=== PATIENT | male | born 1970 | race Caucasian/White ===

== ENCOUNTER 2021-04-08 11:45 | Emergency (ER) | payer MEDICAID, OTHER, SELFPAY ==
[2021-04-08 11:48] VITALS: BP 134/65; PULSE 61; RESP 18; TEMP 37; O2SAT 97; BMI 21.2
[2021-04-08] MEDS: Erythromycin Base 0.5% Oph Oin 1 GM TUBE 1 CM EYE-BOTH (12:54)
[2021-04-08] MEDS: Fluorescein Sodium STRIP 1 STRIP EYE-BOTH (12:54)
[2021-04-08] MEDS: Tetracaine HCl/PF 0.5% Oph Sol 4 ML DROPS 2 DROP EYE-BOTH (12:54)
--- NOTE | 2021-04-08 13:19 | ED.EYEPROB ---
HPI - Eye Problem General Chief complaint: Eye Problems Stated complaint: fb in l eye Time Seen by Provider: 04/08/21 12:16 Source: patient Mode of arrival: ambulatory Limitations: language barrier (Serbian-speaking) History of Present Illness HPI Narrative: 50-year-old male presenting to the ED with complaints of possible foreign body to the left eye that occurred on Tuesday while he was cutting wood. He reports that he feels like something is stuck in his eye. He reports some blurriness and redness. He denies any fevers, chills, dizziness, headaches, drainage from the eye or any other symptoms complaints or concerns at this time. MD chief complaint: eye redness, eye injury, vision change and foreign body Onset (ago): day(s) (Three days) Onset description: gradual Duration: constant and progressively worsening Location: left eye Eye Symptoms: redness, foreign body sensation, itching and blurry vision Place: home Mechanism: occurred while hammering/grinding (Wood) Severity: mild Associated symptoms: none Treatments Prior to Arrival: none Related Data Previous Rx's Medication Instructions Recorded acetaminophen 300 mg-codeine 30 mg 1 tab PO Q8H PRN #10 tab 04/08/21 tablet erythromycin 5 mg/gram (0.5 %) eye 0.5 inch OPHTHALMIC (EYE) QID 7 04/08/21 ointment Days #3.5 g Allergies Allergy/AdvReac Type Severity Reaction Status Date / Time No Known Allergies Allergy Unverified 01/24/20 18:43 [No Known Allergies*] Review of Systems Review of Systems: Constitutional : No fevers, no chills, No changes in activity, No lethargy, No recent prior head injury, No agitation, No increased fussiness ENT/Mouth : No Ear Pain, No Nasal discharge/drainage Eyes: + Vision changes/blurry/decreased vision, No Eye Pain, No Swelling, + Redness, + Foreign Body, No Photophobia, no discharge, no drainage, no itching, no eyelid edema, no contact lens uses, no recent welding, no bleeding Cardiovascular : No Chest Pain, No SOB Respiratory : No Cough Gastrointestinal : No Nausea, No Vomiting, No abdominal Pain Genitourinary : No Dysuria, No Urinary Frequency, No Urinary Incontinence, No Urgency, No Flank Pain Musculoskeletal : No joint pain, No neck stiffness, No back pain/injury Skin : No lacerations Neuro : No unsteady gait, No Paresthesias, No Loss of Consciousness, No altered mental status, No dizziness, No Headache Denies past medical history of HIV, recent trauma, coagulopathy, recent spinal/ epidural procedure, new medication, URI symptoms, close contacts with similar symptoms, tick bite, or known CO2 exposure. Yes all other systems are reviewed and are negative PMFSH Past Medical History Attestation statement: The following information was validated with the patient. Social History Social History Advance Directives: No Advance Directives Information Provided: No Physical Exam Vital Signs: Vital Signs: Last Vital Signs Temp 98.6 F 04/08/21 11:48 Pulse 61 04/08/21 11:48 Resp 18 04/08/21 11:48 BP 134/65 04/08/21 11:48 Pulse Ox 97 04/08/21 11:48 BMI result Body Mass Index 21.2 vital signs have been reviewed as normal and appeared to be correct. Blood pressure normal. Heart rate normal. Respiration rate normal. Temperature normal. Oxygen saturation normal. Appearance: Alert. Oriented X3. No acute distress. Head: Normal external exam. Normocephalic. Atraumatic. Eyes: PERRLA. EOMI. Left conjunctiva mildly erythematous and when I stained the patient's eye he had multiple small foreign bodies and a small corneal abrasion otherwise no rust ring noted. And no additional foreign bodies noted. The right conjunctiva in cornea is within normal limits. Funduscopic exam within normal limits. Sclera normal. Eyelids normal. No papilledema noted. Anterior chamber normal. No photophobia noted. See nurse's notes for visual acuity. ENT: Pharynx normal. Uvula midline. Moist mucous membranes. Neck: Normal inspection. Neck supple. FROM. No adenopathy. Thyroid Normal. No meningeal signs. No neck mass noted. CVS: Normal heart rate and rhythm. Heart sound normal. No murmurs noted. Pulses normal throughout. Respiratory: No respiratory distress. Painless inspiration. Breath sounds normal. Back: Full range of motion noted. Skin: Skin warm and dry. Normal skin color. Normal skin turgor. No rashes/lesions/lacerations noted. Extremities: Extremities exhibit normal range of motion. Extremities nontender. Neuro: Oriented X 3. No motor deficit. No sensory deficit. Reflexes normal. Course Course Course Narrative: Patient presenting to the ED with foreign body and corneal abrasion to the left eye that occurred on Tuesday while he was working with wood. Reports he is not up-to-date on tetanus. Therefore tetanus updated at this time. I applied erythromycin. Patient tolerated procedure well. Will DC home with antibiotics and symptomatic treatment instructions to follow up with Dr. Cai project geologist and to return if any new or worsening symptoms. Patient understands agrees with this plan. MDM - Eye Problem Medical Records Attestation: I reviewed the patient's medical records. Discharge Plan Discharge Clinical Impression: Corneal abrasion, Corneal foreign body Patient Disposition: Home, Self-Care Instructions: Corneal Abrasion (ED), Eye Foreign Body (ED) Prescriptions: New acetaminophen-codeine 300-30 mg tablet 1 tab PO Q8H PRN (Reason: pain) Qty: 10 RF: 0 erythromycin 5 mg/gram (0.5 %) ointment 0.5 inch ophthalmic (eye) QID 7 Days Qty: 3.5 RF: 0 Referrals: [facility] [Primary Care Provider] - 2 days Roly Cai [Physician] - 2 days Stand Alone Forms: Work/School Release Interventions: ED Discharge Assessment Last Done: 04/08/21 13:42 Discharge Date/Time: 04/08/21 13:43 Print Language: Serbian
[2021-04-08] MEDS: Diphth,Pertus(ACell),Tet Adult 0.5 ML SYRINGE IM (13:38)
== END 2021-04-08 13:43 | disposition home or self-care (01) ==
PROVIDERS: Emergency Provider Emergency Medicine
DX: S05.02XA Injury of conjunctiva and corneal abrasion without foreign body, left eye, initial encounter (principal); H57.12 Ocular pain, left eye; Y29.XXXA Contact with blunt object, undetermined intent, initial encounter; Y93.9 Activity, unspecified; Y92.9 Unspecified place or not applicable; Y99.9 Unspecified external cause status; Z79.899 Other long term (current) drug therapy
CPT/HCPCS: 90471; 90715; 99284

== ENCOUNTER 2021-05-23 09:35 | Emergency (ER) | payer MEDICAID, OTHER, SELFPAY ==
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
[2021-05-23 10:19] VITALS: BP 117/75; PULSE 71; RESP 18; TEMP 35.9; O2SAT 98; BMI 27.2
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
[2021-05-23 17:50] LABS: COVID-19 Test Negative (Negative); IDNOW Serial# 9DD0AD1C
== END 2021-05-23 19:05 | disposition home or self-care (01) ==
PROVIDERS: Physician Assistant; Emergency Provider Internal Medicine; PCP Family Medicine
DX: S02.2XXA Fracture of nasal bones, initial encounter for closed fracture (principal); V43.62XA Car passenger injured in collision with other type car in traffic accident, initial encounter; Y93.89 Activity, other specified; Y92.414 Local residential or business street as the place of occurrence of the external cause; Y99.0 Civilian activity done for income or pay; Z20.822 Contact with and (suspected) exposure to COVID-19
CPT/HCPCS: 70486; 87635; 99283; 99284

== ENCOUNTER 2021-10-28 08:21 | Outpatient (REF) | payer MEDICAID, OTHER, SELFPAY ==
--- NOTE | 2021-10-28 18:03 | MHC.AU.AHA ---
Adult Audiological Evaluation Date of Visit: 10/28/21 Turbine Room Attendant Used: Irish- By Phone Reason for Appointment: Audiological evaluation due to concern for decreased hearing. Mr. Burgos has a known bilateral, asymmetrical hearing loss, right ear worse than left. He uses a BiCROS hearing aid system, as he has very poor speech discrimination abilities in the right ear. He notes that the hearing aids have not been working well. He denies any changes to his medical history since his last visit. Previous Hearing Test Results: [facility] [place], 11/03/2017- Mild dropping to profound mixed hearing loss through 2000 Hz, rising to moderately severe high-frequency sensorineural hearing loss through 8000 Hz in the left ear with 76% speech discrimination at 95 dBHL. Severe to profound mixed hearing loss from 250-8000 Hz in the right ear with 36% speech discrimination at 110 dBHL. Ear History: Bothersome Tinnitus/Ringing/Noises in Ears: Right Ear Medical History: Medical History: Cryptococcal meningitis, HIV Allergies: NKA Medication List: Not provided Hearing Instrument History- Right Ear: Aviation Survival Technician: Phonak Model: CROS II 312 Serial Number: [id number] Battery Size: 312 Repair Warranty: 09/12/2017 Loss and Damage Warranty: Used 03/28/2017 Dispensed By: [facility] Date of Fittin08/27/2015 Hearing Instrument History- Left Ear: Aviation Survival Technician: Phonak Model: Virto V50-312 Serial Number: [id number] Battery Size: 312 Warranty: 09/12/2017 Loss and Damage Warranty: Used 03/28/2017 Dispensed By: [facility] Date of Fittin08/27/2015 Otoscopy: Right Ear: Unremarkable Left Ear: Unremarkable Tympanometry: Tympanometry performed due to: To assess integrity of the middle ear system Right Ear: Reduced Middle Ear Compliance (Type As) Left Ear: Normal Middle Ear System (Type A) Hearing Evaluation: Transducer(s) Used: Insert Earphones, Bone Conduction Method: Conventional Audiometry Stimuli Used: Pure Tones Right Ear: Description of Hearing: Severe to profound mixed hearing loss from 250-8000 Hz. Left Ear: Description of Hearing: Normal hearing at 250 Hz, steeply sloping to a moderate to profound mixed hearing loss from 500-3000 Hz, rising to severe to moderately-severe hearing loss from 2615-5642 Hz. Speech Recognition Threshold (SRT): Method Used: Recorded Lists Stimuli Used: Irish Trisyllable Words Right Ear: 90 dBHL (masked) Left Ear: 55 dBHL Word Discrimination: Method: Recorded Lists Word Lists Used: Lista Bisil?bica (Irish) Right Ear: 0/10 correct at 100 dBHL (masked) Left Ear: 52% at 90 dBHL Comparison: Compared to the most recent evaluation: Hearing is stable. Recommendations: Audiological re-evaluation in one year. Hearing aid maintenance performed. Left hearing aid is in good working condition, however, the right CROS device is no longer transmitting sound to the left hearing aid as it should be. Advised patient that it is not recommended that we send it out for repair given the age of the device. Also advised that his current insurance plan does not provide hearing aid coverage. Recommend he speak with his insurance to determine if he is eligible for a plan that does cover hearing aids. Updated amplification is highly recommended given the severity of Mr. Burgos's hearing loss and the age and condition of his current devices. Diagnosis: Primary Diagnosis: H90.3 Bilateral Sensorineural Hearing Loss Services Performed: Comprehensive Audiological Evaluation (CPT 03251) Tympanometry (CPT 47854) Signature: Provider: Lucina Poole, RHODA-A
--- NOTE | 2021-10-28 18:09 | MHC.AU.HFU ---
Hearing Instrument Follow-Up- Binaural Date of Visit: 10/28/21 Transit Clerk Used: Armenian- By Phone Right Ear: Cupola Patcher: Phonak Model: CROS II 312 ITE Serial Number: [id number] Repair Warranty: 09/22/2017 Loss and Damage Warranty: Used 03/28/2017 Battery Size: 312 Dispensed By: [facility] Date of Fittin08/27/2015 Left Ear: Cupola Patcher: Phonak Model: Virto V50-312 Serial Number: [id number] Repair Warranty: 09/22/2017 Loss and Damage Warranty: Used 03/28/2017 Battery Size: 312 Type of Wax Guard: Cerustop Dispensed By: [facility] Date of Fittin08/27/2015 Follow-Up Summary: Hearing aid maintenace performed. Cleaned aids, vacuumed microphones, replaced left wax guard, cleared vents. Left aid is in good working condition and amplifying clearly. Right CROS device is turning on and connecting to the left, but is not transmitting any audio. Updated programming to today's audiogram. Advised patient that the right side is not working and he should only wear the left hearing aid for now. Advised that his current insurance plan does not cover hearing aids and to send aids out it would be an out of pocket expense. Recommend he check with to see if he is eligible for another plan the covers hearing aids. Updated hearing aids are highly recommended give age and condition of his hearing aids. Recommendations: Hearing instrument maintenance in 6 months, or sooner if needed. Please contact our clinic with any questions or concerns. Signature: Provider: Lucina Poole, CCC-A
== END 2021-10-28 08:22 | disposition home or self-care (01) ==
LOC: HO.SH 08:21
PROVIDERS: Visit Provider Family Medicine
DX: Z01.118 Encounter for examination of ears and hearing with other abnormal findings (principal); H90.3 Sensorineural hearing loss, bilateral
CPT/HCPCS: 92557; 92567

== ENCOUNTER 2022-07-14 11:18 | Outpatient (REF) | payer OTHER, SELFPAY ==
--- NOTE | 2022-07-22 15:11 | MHC.AU.HA3 ---
Hearing Instrument Follow-Up- Binaural Date of Visit: 07/22/22 Unit Secretary Used: Greek- by Phone Right Ear: Make, Model, Color, Serial Number: J Luis CROS II 312, #[id number] Disk And Tape Machine Tender Repair Warranty: 09/22/2017 Disk And Tape Machine Tender Loss and Damage Warranty: Used on 03/28/2017 Battery Size: 312 Dispensed By: [facility] Date of Fittin08/27/2015 Left Ear: Make, Model, Color, Serial Number: J Luis Virto V50-312, #[id number] Disk And Tape Machine Tender Repair Warranty: 09/22/2017 Disk And Tape Machine Tender Loss and Damage Warranty: Used 03/28/2017 Battery Size: 312 Type of Wax Guard: Cerustop Dispensed By: [facility] Date of Fittin08/27/2015 Follow-Up Summary: Patient was last seen at our clinic on 10/28/2021. At the time, the CROS was turning on, but not transmitting audio to the left hearing aid. He was unable to cover cost of a repair at the time, and his insurance did not have hearing aid benefits. It was recommended that he check with [facility] to see if was eligible for a different plan. New hearing aids were recommended given the age and condition of the hearing aids. He arrives today to have the hearing instruments looked at. He reports that the left hearing aid has also stopped working. He has a letter from the [facility] stating they will cover the cost of repaired or new hearing aids. Both hearing instruments were inspected and cleaned. Wax was removed from the left whitewater rafting guide. Both instruments were placed in the electric dehumidifier for several minutes. After, both hearing instruments were working again. Although the hearing instruments are both working for now, they are 7 years old and in poor condition. New instruments are still recommended. To do so, we would first need an order for an updated hearing test. Recommendations: It is recommended that his PCP send an order for an updated hearing test. After the test, we could talk about new hearing instruments. Diagnosis Code(s): Primary Diagnosis: H90.3 Bilateral Sensorineural Hearing Loss Signature: Provider: Pete Mayer, [facility]
== END 2022-07-14 11:19 | disposition home or self-care (01) ==
LOC: HO.HAP 11:18
PROVIDERS: Visit Provider Family Medicine
DX: Z46.1 Encounter for fitting and adjustment of hearing aid (principal); H90.3 Sensorineural hearing loss, bilateral
CPT/HCPCS: 92593

== ENCOUNTER 2022-07-14 11:54 | Outpatient (REF) | payer SELFPAY | END 2022-07-14 11:55 | disposition home or self-care (01) | LOC: HO.HAP 11:54 | PROVIDERS: Visit Provider Family Medicine | DX: Z46.1 Encounter for fitting and adjustment of hearing aid (principal); H90.3 Sensorineural hearing loss, bilateral | CPT/HCPCS: V5266 ==

== ENCOUNTER 2022-11-12 07:57 | Outpatient (REF) | payer MEDICAID, OTHER, SELFPAY ==
--- NOTE | ~2022-11-12 | US_ITS ---
EXAMINATION: US ABDOMEN COMPLETE CLINICAL INFORMATION: Elevated LFTs. COMPARISON: Ultrasound abdomen 05/14/2019 and 05/13/2016. TECHNIQUE: Real-time imaging of the abdominal viscera. FINDINGS: PANCREAS: The pancreas is not well seen due to bowel gas. ABDOMINAL AORTA: The proximal and mid abdominal aorta are partially obscured by bowel gas. The visualized portions of the proximal and mid abdominal aorta are normal caliber. The distal abdominal aorta is normal caliber. INFERIOR VENA CAVA: Visualized portions are normal. LIVER: The liver is normal in size. The liver contour is normal. There is diffuse increased liver parenchymal echogenicity, consistent with hepatic steatosis. No focal hepatic lesion. There is no intrahepatic biliary duct dilatation seen. GALLBLADDER: Normal. The gallbladder is physiologically distended without evidence of stones, sludge, polyps, wall thickening or pericholecystic fluid. COMMON BILE DUCT: Normal in caliber measuring 0.5 cm in diameter. RIGHT KIDNEY: No hydronephrosis or focal parenchymal lesions. The kidney measures 10.0 cm in maximum dimension. 0.2 x 0.3 x 0.3 cm nonobstructing calculus is seen in the lower pole, 0.3 x 0.3 x 0.3 cm nonobstructing calculus is seen in the mid kidney LEFT KIDNEY: Normal. No hydronephrosis. No renal calculi or focal parenchymal lesions. The kidney measures 11.4 cm in maximum dimension. SPLEEN: The spleen is again not identified. FREE FLUID: None. US/US abdomen complete IMPRESSION: 1. Hepatic steatosis. 2. 2 small nonobstructing calculi in the right kidney. 3. The pancreas is normal well seen due to bowel gas. 4. The spleen is again not identified.
== END 2022-11-12 07:58 | disposition home or self-care (01) ==
LOC: HO.US 07:57
PROVIDERS: PCP Family Medicine; Visit Provider Family Medicine
DX: R74.01 Elevation of levels of liver transaminase levels (principal)
CPT/HCPCS: 76700

== ENCOUNTER 2023-03-08 08:09 | Outpatient (REF) | payer MEDICAID, OTHER, SELFPAY ==
[2023-03-08 11:14] LABS: MANUAL DIFF FLAG NO
[2023-03-08 11:23] LABS: Basophils Percent Auto 0.5 % (0-2); Eosinophils Absolute Auto 0.2 X10*3/uL (0.0-0.4); Eosinophils Percent Auto 3.1 % (0-4); Hematocrit 44.2 % (42.0-52.0); Hemoglobin 14.7 g/dl (14.0-18.0); Imm Gran Abs Auto 0.02 X10*3/uL (0.00-0.03); Imm Gran Pct Auto 0.4 % (0.0-0.4); Lymphocytes Absolute Auto 1.4 X10*3/uL (1.2-4.9); Lymphocytes Percent Auto 25.2 % (20-40); Mean Corpuscular HGB Conc 33.3 g/dl (31.0-36.0); Mean Corpuscular Hemoglobin 30.8 pg (27.0-33.0); Mean Corpuscular Volume 92.7 fL (80.0-98.0); Mean Platelet Volume 11.1 fL (9.4-12.4); Monocytes Absolute Auto 0.5 X10*3/uL (0.1-1.2); Monocytes Percent Auto 9.4 % (2-11); Neutrophils Absolute Auto 3.4 x10*3/uL (2.0-8.3); Neutrophils Percent Auto 61.4 % (45-73); Platelet Count 281 X10*3/uL (160-400); Red Blood Count 4.77 X10*6/uL (4.60-5.80); Red Cell Distribution Width 13.8 % (11.0-16.0); White Blood Count 5.5 X10*3/uL (4.8-10.8)
[2023-03-08 11:33] LABS: Estimated Average Glucose 117 mg/dL; Hemoglobin A1c % 5.7 % (<6.0)
[2023-03-08 11:52] LABS: Alanine Aminotransferase 95 U/L (0-40); Albumin Level 4.1 g/dL (3.5-5.0); Alkaline Phosphatase 115 U/L (39-117); Anion Gap 14 (12-20); Aspartate Amino Transferase 54 U/L (5-37); Bilirubin Direct 0.2 mg/dL (0.0-0.5); Bilirubin Total 0.7 mg/dL (0.0-1.0); Blood Urea Nitrogen 17 mg/dL (9-16); Calcium 9.7 mg/dL (8.4-10.2); Carbon Dioxide 23 mmol/L (22-29); Chloride 108 mmol/L (96-108); Cholesterol 193 mg/dL (<200); Estimated Glomerular Filt Rate > 60; Glucose Random 102 mg/dL (60-115); HDL Cholesterol 41 mg/dL (>40); LDL Cholesterol Calculated 131 mg/dL (<100); Potassium 4.1 mmol/L (3.3-5.1); Sodium 141 mmol/L (135-145); Total Protein 7.8 g/dL (6.5-8.0); Triglycerides 107 mg/dL (<150)
[2023-03-08 11:57] LABS: Free T4 (Free Thyroxine) 0.97 ng/dL (0.71-1.85); Thyroid Stimulating Hormone 3.68 uIU/mL (0.32-4.0); Vitamin D 25-OH Total 30.9 ng/mL (>30)
[2023-03-08 12:05] LABS: HBS Num1 212.76 mIU/mL (0-7.99); HBsAGNum1 0.41 S/CO (0.00-0.99); Hepatitis B Surface Antigen Negative (Negative); ~HepC Num1 0.05 S/CO (0.00-0.79); ~Hepatitis B Surface Antibody REACTIVE (Nonreactive); ~Hepatitis C Antibody Nonreactive (Nonreactive)
[2023-03-08 14:18] LABS: CT PCR NOT DETECTED (Not Detect.); NG PCR NOT DETECTED (Not Detect.)
[2023-03-09 16:12] LABS: HIV RNA PCR Qn Copies 44 copies/mL (NOT DETECTED); HIV RNA PCR Qn Log Copies 1.64 (NOT DETECTED)
[2023-03-10 07:58] LABS: RPR Rapid Plasma Reagin NON-REACTIVE (NON-REACTIVE)
[2023-03-10 10:04] LABS: Absolute CD4 Count 248 cells/uL (490-1740); Absolute CD8 Count 629 cells/uL (180-1170); Absolute Lymphocytes 1470 cells/uL (850-3900); CD4 CD8 Ratio 0.39 (0.86-5.00); Percent CD4 Cells 17 % (30-61); Percent CD8 Cells 43 % (12-42)
[2023-03-10 12:29] LABS: Alpha Fetoprotein 4.7 ng/mL (<6.1)
== END 2023-03-08 08:10 | disposition home or self-care (01) ==
LOC: HO.HHCL 08:09
PROVIDERS: Visit Provider Family Medicine
DX: K76.0 Fatty (change of) liver, not elsewhere classified (principal); B20 Human immunodeficiency virus [HIV] disease; Z11.3 Encounter for screening for infections with a predominantly sexual mode of transmission
CPT/HCPCS: 0353U; 80048; 80061; 80076; 82105; 82306; 83036; 84439; 84443; 85025; 86360; 86592; 86706; 86803; 87340; 87536

== ENCOUNTER 2023-08-01 12:51 | Outpatient (REF) | payer MEDICAID, OTHER, SELFPAY ==
[2023-08-01 16:10] LABS: MANUAL DIFF FLAG NO
[2023-08-01 16:24] LABS: Basophils Percent Auto 0.6 % (0-2); Eosinophils Absolute Auto 0.1 X10*3/uL (0.0-0.4); Eosinophils Percent Auto 1.6 % (0-4); Hematocrit 45.1 % (42.0-52.0); Imm Gran Abs Auto 0.02 X10*3/uL (0.00-0.03); Imm Gran Pct Auto 0.3 % (0.0-0.4); Lymphocytes Absolute Auto 3.3 X10*3/uL (1.2-4.9); Lymphocytes Percent Auto 52.1 % (20-40); Mean Corpuscular HGB Conc 33.3 g/dl (31.0-36.0); Mean Corpuscular Hemoglobin 30.1 pg (27.0-33.0); Mean Corpuscular Volume 90.4 fL (80.0-98.0); Mean Platelet Volume 11.3 fL (9.4-12.4); Monocytes Absolute Auto 0.4 X10*3/uL (0.1-1.2); Monocytes Percent Auto 6.9 % (2-11); Neutrophils Absolute Auto 2.5 x10*3/uL (2.0-8.3); Neutrophils Percent Auto 38.5 % (45-73); Platelet Count 283 X10*3/uL (160-400); Red Blood Count 4.99 X10*6/uL (4.60-5.80); Red Cell Distribution Width 13.7 % (11.0-16.0); White Blood Count 6.4 X10*3/uL (4.8-10.8)
[2023-08-01 16:27] LABS: Estimated Average Glucose 137 mg/dL; Hemoglobin A1c % 6.4 % (<6.0)
[2023-08-01 16:57] LABS: Alanine Aminotransferase 179 U/L (0-40); Albumin Level 4.2 g/dL (3.5-5.0); Alkaline Phosphatase 144 U/L (39-117); Anion Gap 11 (12-20); Aspartate Amino Transferase 91 U/L (5-37); Bilirubin Total 0.4 mg/dL (0.0-1.0); Blood Urea Nitrogen 16 mg/dL (9-16); Calcium 9.1 mg/dL (8.4-10.2); Carbon Dioxide 24 mmol/L (22-29); Chloride 111 mmol/L (96-108); Cholesterol 146 mg/dL (<200); Estimated Glomerular Filt Rate > 60; Glucose Random 92 mg/dL (60-115); HDL Cholesterol 35 mg/dL (>40); LDL Cholesterol Calculated 95 mg/dL (<100); Sodium 142 mmol/L (135-145); Total Protein 7.6 g/dL (6.5-8.0); Triglycerides 82 mg/dL (<150)
[2023-08-01 17:16] LABS: TSH reflex Free T4 1.34 uIU/mL (0.32-4.0)
[2023-08-02 04:20] LABS: Syphilis Screen Nonreactive (Nonreactive)
[2023-08-02 04:43] LABS: Hepatitis A Antibody IgG REACTIVE (Nonreactive); ~Hepatitis A Antibody IgG 8.93 S/CO (0.00-0.99)
[2023-08-02 04:50] LABS: HBS Num1 215.32 mIU/mL (0-7.99); HBc Num1 1.13 S/CO (0.00-0.79); HBsAGNum1 0.36 S/CO (0.00-0.99); Hepatitis B Surface Antigen Negative (Negative); ~HepC Num1 0.11 S/CO (0.00-0.79); ~Hepatitis B Surface Antibody REACTIVE (Nonreactive); ~Hepatitis C Antibody Nonreactive (Nonreactive)
[2023-08-02 05:28] LABS: HBc Num2 1.21 S/CO; HBc Num3 1.24 S/CO; Hepatitis B Core Antibody Reactive (Nonreactive)
[2023-08-02 18:13] LABS: Rubella IgG Antibody 1.56 Index; Rubeola IgG (Measles) <13.50 AU/mL
[2023-08-03 07:13] LABS: HIV RNA PCR Qn Copies 85 copies/mL (NOT DETECTED); HIV RNA PCR Qn Log Copies 1.93 (NOT DETECTED)
[2023-08-03 12:49] LABS: Absolute CD3 Count 2246 cells/uL (840-3060); Absolute CD4 Count 784 cells/uL (490-1740); Absolute CD8 Count 1449 cells/uL (180-1170); Absolute Lymphocytes 3457 cells/uL (850-3900); CD4 CD8 Ratio 0.54 (0.86-5.00); Percent CD3 Cells 65 % (57-85); Percent CD4 Cells 23 % (30-61); Percent CD8 Cells 42 % (12-42)
[2023-08-04 07:48] LABS: TS Negative Control Passed; TS Panel A 0; TS Panel B 1; TS Positive Control Passed; TSpotTB Negative (Negative)
== END 2023-08-01 12:52 | disposition home or self-care (01) ==
LOC: HO.HHCL 12:51
PROVIDERS: Visit Provider Student in an Organized Health Care Education/Training Program
DX: B20 Human immunodeficiency virus [HIV] disease (principal)
CPT/HCPCS: 36415; 80053; 80061; 83036; 84443; 85025; 86359; 86360; 86481; 86704; 86706; 86708; 86735; 86762; 86765; 86780; 86787; 86803; 87340; 87536

== ENCOUNTER 2023-08-18 09:51 | Outpatient (REF) | payer MEDICAID, OTHER, SELFPAY ==
--- NOTE | ~2023-08-18 | US_ITS ---
EXAMINATION: US ABDOMEN COMPLETE CLINICAL INFORMATION: Bump in LFTs. Follow-up fatty liver. COMPARISON: Ultrasound abdomen complete 11/12/2022 and 05/14/2019. TECHNIQUE: Real-time imaging of the abdominal viscera. FINDINGS: PANCREAS: Not well visualized due to bowel gas. ABDOMINAL AORTA: Mid aorta are not well-visualized due to bowel gas. INFERIOR VENA CAVA: Not well visualized due to bowel gas. LIVER: The liver is normal in size. The liver contour is normal. Liver echotexture is slightly increased. No focal hepatic lesion. There is no intrahepatic biliary duct dilatation seen. GALLBLADDER: Normal. The gallbladder is physiologically distended without evidence of stones, sludge, polyps, wall thickening or pericholecystic fluid. COMMON BILE DUCT: Normal in caliber measuring 0.5 cm in diameter. RIGHT KIDNEY: 3 mm echogenic density with twinkle artifact suggestive of a stone. No hydronephrosis or focal parenchymal lesions. The kidney measures 9.8 cm in maximum dimension. LEFT KIDNEY: Normal. No hydronephrosis. No renal calculi or focal parenchymal lesions. The kidney measures 10.6 cm in maximum dimension. SPLEEN: Not seen FREE FLUID: None. US/US abdomen complete IMPRESSION: Slightly echogenic liver. Differential would include fatty infiltration and hepatocellular disease. Small right renal stone. Spleen not seen. Limited visualization of the pancreas, aorta and IVC.
== END 2023-08-18 09:52 | disposition home or self-care (01) ==
LOC: HO.US 09:51
PROVIDERS: PCP Family Medicine; Visit Provider Family Medicine
DX: K76.0 Fatty (change of) liver, not elsewhere classified (principal); R74.01 Elevation of levels of liver transaminase levels
CPT/HCPCS: 76700

== ENCOUNTER 2023-09-26 16:45 | Outpatient (REF) | payer MEDICAID, OTHER, SELFPAY | END 2023-09-26 16:46 | disposition home or self-care (01) | LOC: HO.HHCLNP 16:45 | PROVIDERS: Visit Provider Student in an Organized Health Care Education/Training Program | DX: B20 Human immunodeficiency virus [HIV] disease (principal) | CPT/HCPCS: 88112 ==

== ENCOUNTER 2023-11-29 11:09 | Outpatient (REF) | payer MEDICAID, OTHER, SELFPAY ==
[2023-11-29 13:55] LABS: Alanine Aminotransferase 38 U/L (0-40); Albumin Level 4.2 g/dL (3.5-5.0); Alkaline Phosphatase 97 U/L (39-117); Anion Gap 12 (12-20); Aspartate Amino Transferase 26 U/L (5-37); Bilirubin Total 0.4 mg/dL (0.0-1.0); Blood Urea Nitrogen 16 mg/dL (9-16); Calcium 9.5 mg/dL (8.4-10.2); Carbon Dioxide 21 mmol/L (22-29); Chloride 112 mmol/L (96-108); Estimated Glomerular Filt Rate > 60; Glucose Random 82 mg/dL (60-115); Potassium 4.1 mmol/L (3.3-5.1); Sodium 141 mmol/L (135-145); Total Protein 7.5 g/dL (6.5-8.0)
[2023-11-29 15:44] LABS: CT PCR NOT DETECTED (Not Detect.); NG PCR NOT DETECTED (Not Detect.)
[2023-12-02 18:14] LABS: Hepatitis B Viral DNA Qn - cp NOT DETECTED Log IU/mL (NOT DETECTED); Hepatitis B Viral DNA Qn-IU/mL NOT DETECTED (NOT DETECTED)
[2023-12-02 18:23] LABS: HIV RNA PCR Qn Copies 126 copies/mL (NOT DETECTED)
== END 2023-11-29 11:10 | disposition home or self-care (01) ==
LOC: HO.HHCL 11:09
PROVIDERS: Visit Provider Student in an Organized Health Care Education/Training Program
DX: B20 Human immunodeficiency virus [HIV] disease (principal)
CPT/HCPCS: 36415; 80053; 87491; 87517; 87536; 87591

== ENCOUNTER 2023-12-19 11:05 | Outpatient (REF) | payer MEDICAID, OTHER, SELFPAY ==
[2023-12-29 16:28] LABS: HIV 1 Integrase Proviral DNA DETECTED; HIV 1 PR RT Proviral DNA DETECTED
== END 2023-12-19 11:06 | disposition home or self-care (01) ==
LOC: HO.HHCL 11:05
PROVIDERS: Visit Provider Student in an Organized Health Care Education/Training Program
DX: B20 Human immunodeficiency virus [HIV] disease (principal)
CPT/HCPCS: 36415; 87900; 87901; 87906

== ENCOUNTER 2024-03-20 13:57 | Outpatient (REF) | payer MEDICAID, OTHER, SELFPAY ==
[2024-03-20 16:18] LABS: MANUAL DIFF FLAG NO
[2024-03-20 16:23] LABS: Basophils Percent Auto 0.6 % (0-2); Eosinophils Absolute Auto 0.2 X10*3/uL (0.0-0.4); Eosinophils Percent Auto 2.3 % (0-4); Hematocrit 39.4 % (42.0-52.0); Hemoglobin 13.2 g/dl (14.0-18.0); Imm Gran Abs Auto 0.01 X10*3/uL (0.00-0.03); Imm Gran Pct Auto 0.2 % (0.0-0.4); Lymphocytes Absolute Auto 3.6 X10*3/uL (1.2-4.9); Lymphocytes Percent Auto 56.3 % (20-40); Mean Corpuscular HGB Conc 33.5 g/dl (31.0-36.0); Mean Corpuscular Hemoglobin 30.5 pg (27.0-33.0); Mean Platelet Volume 10.6 fL (9.4-12.4); Monocytes Absolute Auto 0.7 X10*3/uL (0.1-1.2); Monocytes Percent Auto 11.5 % (2-11); Neutrophils Absolute Auto 1.9 x10*3/uL (2.0-8.3); Neutrophils Percent Auto 29.1 % (45-73); Platelet Count 232 X10*3/uL (160-400); Red Blood Count 4.33 X10*6/uL (4.60-5.80); Red Cell Distribution Width 13.5 % (11.0-16.0); White Blood Count 6.5 X10*3/uL (4.8-10.8)
[2024-03-20 16:33] LABS: Alanine Aminotransferase 43 U/L (0-40); Alkaline Phosphatase 127 U/L (39-117); Anion Gap 13 (12-20); Aspartate Amino Transferase 33 U/L (5-37); Bilirubin Total 0.3 mg/dL (0.0-1.0); Blood Urea Nitrogen 17 mg/dL (9-16); Calcium 9.3 mg/dL (8.4-10.2); Carbon Dioxide 22 mmol/L (22-29); Chloride 110 mmol/L (96-108); Estimated Glomerular Filt Rate > 60; Glucose Random 120 mg/dL (60-115); Potassium 3.7 mmol/L (3.3-5.1); Sodium 141 mmol/L (135-145)
[2024-03-21 09:41] LABS: Iron 96 mcg/dL (45-160); Percent Iron Saturation 35 % (15-50); Total Iron Binding Capacity 278 mcg/dL (228-428); Unsaturated Iron Binding 182 ug/dL
[2024-03-21 09:57] LABS: Ferritin 129 ng/mL (20-250)
[2024-03-22 13:48] LABS: HIV RNA PCR Qn Copies NOT DETECTED copies/mL (NOT DETECTED); HIV RNA PCR Qn Log Copies NOT DETECTED (NOT DETECTED)
[2024-03-23 23:53] LABS: Absolute CD3 Count 2439 cells/uL (840-3060); Absolute CD4 Count 845 cells/uL (490-1740); Absolute CD8 Count 1601 cells/uL (180-1170); Absolute Lymphocytes 4019 cells/uL (850-3900); CD4 CD8 Ratio 0.53 (0.86-5.00); Percent CD3 Cells 61 % (57-85); Percent CD4 Cells 21 % (30-61); Percent CD8 Cells 40 % (12-42)
== END 2024-03-20 13:58 | disposition home or self-care (01) ==
LOC: HO.HHCL 13:57
PROVIDERS: Visit Provider Student in an Organized Health Care Education/Training Program
DX: B20 Human immunodeficiency virus [HIV] disease (principal); D50.9 Iron deficiency anemia, unspecified
CPT/HCPCS: 36415; 80053; 82728; 83540; 85025; 86359; 86360; 87536

== ENCOUNTER 2024-05-04 10:20 | Outpatient (REF) | payer MEDICAID, OTHER, SELFPAY ==
--- NOTE | 2024-05-11 15:33 | MHC.AU.MED ---
Medical Clearance for Hearing Instrumentation Date: 05/11/24 Patient Name: Mariano Mon Date of : 1970 Primary Care Provider: Raina Harley MD Referring Provider: Raina Harley MD We have seen your patient on 05/11/24 and have determined that they are a candidate for amplification (See accompanying report). Specifically, they would benefit from: Hearing aid use in both ears There is a statute that addresses Medical Evaluation Requirements prior to fitting a patient with a hearing aid. According to [place] statute 265 CMR:6.03(1), (a) General. Except as provided in 265 CMR 6.03(1)(b), a hearing aid mechanic shall not sell a hearing aid unless the prospective user has presented to the hearing aid mechanic a written statement signed by a licensed physician that states that the patient's hearing loss has been medically evaluated and the patient may be considered a candidate for a hearing aid. The medical evaluation must have taken place within the preceding six months. Please note: Due to the [place] Statute referenced above, we cannot accept a signature other than that of a licensed physician. MULTI SHARE PROGRAM COORDINATOR and PA signatures cannot be accepted. I am in agreement with the above recommendation. There is no medical contraindication for hearing instrumentation. Physician Signature Date Physician Name (Printed)
--- NOTE | 2024-05-11 15:36 | MHC.AU.HA1 ---
Hearing Aid Evaluation Date of Visit: Business Intelligence Director Used: [place]- By Phone Historical Information: Description of Hearing: Right ear: severe to profound snhl Left ear: mild to severe snhl Current personal amplification information, if applicable: phonak virto v50 bicros Summary: Mariano returned for evaluation and hearing aid selection. Spoke on phone with Vahe who is a nurse/welding production supervisor at [facility] [employer] who states funding is still available for new hearing aids, bill will be submitted directly to her after fitting. Mariano aware that bicros style is no longer available in custom aids, is happy to try ISAAC style with rechargeable batteries. Selected Phonak Audeo I50 R bicros in lexie beige. Will request medical clearance and order devices. Hearing Aid Prescription: Based on the individual?s shared listening needs, communication environments, dexterity, desire for connectivity, and personal preferences, the following prescription for amplification has been made: Right ear: Make, Model, Color: Phonak Audeo CROS Battery Size: Rechargeable Machinery Cleaner/Slim Tube: #2 CROS Type of Earmold/Dome/CShell/SlimTip: med vented Left ear: Left ear prescription to be same as Right Hearing Aid above: Make, Model, Color: Phonak Audeo I50 R Battery Size: Rechargeable Machinery Cleaner/Slim Tube: #2M Type of Earmold/Dome/CShell/SlimTip: small power dome Accessories/Assistive Technology Recommended: ui lead developer Plan of Care: Patient wishes to purchase hearing aids as prescribed Action Taken/Action Needed: Medical Clearance to be requested from PCP/ENT Hearing Instrument Fitting to be scheduled when materials arrive Comments: Primary Diagnosis: H90.3 Bilateral Sensorineural Hearing Loss Signature: Provider: Lucina Montgomery, CCC-A
== END 2024-05-04 10:21 | disposition home or self-care (01) ==
LOC: HO.SH 10:20
PROVIDERS: PCP Student in an Organized Health Care Education/Training Program; Visit Provider Student in an Organized Health Care Education/Training Program
DX: Z01.118 Encounter for examination of ears and hearing with other abnormal findings (principal); H90.3 Sensorineural hearing loss, bilateral
CPT/HCPCS: 92552

== ENCOUNTER 2024-05-04 11:07 | Outpatient (REF) | payer SELFPAY | END 2024-05-04 11:08 | disposition home or self-care (01) | LOC: HO.HAP 11:07 | PROVIDERS: Visit Provider Student in an Organized Health Care Education/Training Program | DX: Z46.1 Encounter for fitting and adjustment of hearing aid (principal); H90.3 Sensorineural hearing loss, bilateral | CPT/HCPCS: V5266 ==

== ENCOUNTER 2024-10-11 08:07 | Outpatient (REF) | payer SELFPAY ==
[2024-10-11 11:32] LABS: MANUAL DIFF FLAG NO
[2024-10-11 11:49] LABS: Basophils Percent Auto 0.5 % (0-2); Eosinophils Absolute Auto 0.1 X10*3/uL (0.0-0.4); Hematocrit 38.6 % (42.0-52.0); Hemoglobin 13.1 g/dl (14.0-18.0); Imm Gran Abs Auto 0.02 X10*3/uL (0.00-0.03); Imm Gran Pct Auto 0.3 % (0.0-0.4); Lymphocytes Absolute Auto 2.8 X10*3/uL (1.2-4.9); Lymphocytes Percent Auto 45.8 % (20-40); Mean Corpuscular HGB Conc 33.9 g/dl (31.0-36.0); Mean Corpuscular Hemoglobin 30.8 pg (27.0-33.0); Mean Corpuscular Volume 90.8 fL (80.0-98.0); Monocytes Absolute Auto 0.6 X10*3/uL (0.1-1.2); Monocytes Percent Auto 9.8 % (2-11); Neutrophils Absolute Auto 2.5 x10*3/uL (2.0-8.3); Neutrophils Percent Auto 41.6 % (45-73); Platelet Count 244 X10*3/uL (160-400); Red Blood Count 4.25 X10*6/uL (4.60-5.80); Red Cell Distribution Width 13.9 % (11.0-16.0)
[2024-10-11 12:30] LABS: Syphilis Screen Nonreactive (Nonreactive)
[2024-10-11 12:33] LABS: ~HepC Num1 0.12 S/CO (0.00-0.79); ~Hepatitis C Antibody Nonreactive (Nonreactive)
[2024-10-11 12:40] LABS: Alanine Aminotransferase 24 U/L (0-40); Albumin Level 4.4 g/dL (3.5-5.0); Alkaline Phosphatase 110 U/L (39-117); Anion Gap 9 (12-20); Aspartate Amino Transferase 28 U/L (5-37); Bilirubin Total 0.5 mg/dL (0.0-1.0); Blood Urea Nitrogen 16 mg/dL (9-16); Calcium 9.4 mg/dL (8.4-10.2); Carbon Dioxide 28 mmol/L (22-29); Chloride 109 mmol/L (96-108); Cholesterol 164 mg/dL (<200); Estimated Glomerular Filt Rate > 60; Ferritin 146 ng/mL (20-250); Glucose Random 88 mg/dL (60-115); HDL Cholesterol 34 mg/dL (>40); Iron 64 mcg/dL (45-160); LDL Cholesterol Calculated 96 mg/dL (<100); Percent Iron Saturation 20 % (15-50); Potassium 4.8 mmol/L (3.3-5.1); Sodium 141 mmol/L (135-145); Total Iron Binding Capacity 315 mcg/dL (228-428); Total Protein 7.5 g/dL (6.5-8.0); Triglycerides 171 mg/dL (<150); Unsaturated Iron Binding 251 ug/dL
[2024-10-11 12:59] LABS: Reflex LDLD? No
[2024-10-12 14:54] LABS: HIV RNA PCR Qn Copies 25 copies/mL (NOT DETECTED)
[2024-10-14 09:12] LABS: TS Negative Control Passed; TS Panel A 0; TS Panel B 0; TS Positive Control Passed; TSpotTB Negative (Negative)
[2024-10-16 17:38] LABS: Absolute CD3 Count 2052 cells/uL (840-3060); Absolute CD4 Count 676 cells/uL (490-1740); Absolute CD8 Count 1403 cells/uL (180-1170); Absolute Lymphocytes 3159 cells/uL (850-3900); CD4 CD8 Ratio 0.48 (0.86-5.00); Percent CD3 Cells 65 % (57-85); Percent CD4 Cells 21 % (30-61); Percent CD8 Cells 44 % (12-42)
== END 2024-10-11 08:08 | disposition home or self-care (01) ==
LOC: HO.HHCL 08:07
PROVIDERS: Visit Provider Student in an Organized Health Care Education/Training Program
DX: Z21 Asymptomatic human immunodeficiency virus [HIV] infection status (principal); D50.9 Iron deficiency anemia, unspecified; Z13.6 Encounter for screening for cardiovascular disorders
CPT/HCPCS: 36415; 80053; 80061; 82728; 83540; 85025; 86359; 86360; 86481; 86780; 86803; 87536

== ENCOUNTER 2024-11-19 11:30 | Outpatient (REF) | payer SELFPAY ==
--- OUTSIDE RECORDS SUMMARY | 2024-11-19 12:42 | XMS_ITS | Clinical Summary ---
Author Organization [facility] Address [address] [place] [address] Care Team Providers Care Supervisor Underwriting Clerks Name Role Phone Pcp, No Primary Care Provider Unavailabl e Allergies No known active allergies Medications levothyroxine (SYNTHROID, LEVOTHROID) 200 MCG tablet Take 200 mcg by mouth daily on an empty stomach. Active naloxone (NARCAN) 4 mg/0.1 mL Liquid nasal spray device [place] 4 mg (1 nasal spray) as a single dose; may repeat every 2 to 3 minutes in alt nostrils until medical assistance is available. 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, crystal meth Immunizations Immunization Administration Dates Next Due Tdap 05/14/2021 Social History Tobacco Use Types Packs/Day Years Used Date Smoking Tobacco: Former Smokeless Tobacco: Never Alcohol Use Standard Drinks/Week Comments Not Currently 0 (1 standard drink = 0.6 oz pur e alcohol) Sex and Gender Information Value Date Recorded Sex Assigned at Male 07/06/2024 8:14 AM EST Legal Sex Male 6:39 PM EDT Gender Identity Male 07/06/2024 8:14 AM EST Sexual Orientation Heterosexual (straight) 07/06 8:14 AM EST Last Filed Vital Signs Vital Sign Reading Time Taken Comments Blood Pressure 108/54 07/04/2024 1:39 PM EST Pulse 57 07/04/2024 1:39 PM EST Temperature 36.8 C (98.3 F) 07/04/2024 10:23 AM EST Respiratory Rate 16 07/04/2024 1:39 PM EST Oxygen Saturation 95% 07/04/2024 1:39 PM EST Inhaled Oxygen Concentration - - Weight 67.1 kg (148 lb) 06/23/2021 9:18 AM EST Height 157.5 cm (5' 2 ) 06/23/2021 9:18 AM EST Body Mass Index 27.07 06/23/2021 9:18 AM EST Plan of Treatment Health Maintenance Due Date Last Done Comments Hepatitis C Virus Screening 1970 COVID-19 Vaccine (#1) 1974 Hepatitis B Vaccines (1 of 3 - 19+ 3-dose series) 1988 Pneumococcal Vaccines 50+ (1 of 2 - PCV) 1988 Zoster (Shingles) Vaccine (1 of 2) 1988 Colonoscopy 2014 Influenza Vaccine 12/07/2024 DTaP/Tdap/Td Vaccines (2 - Td or Tdap) 05/14/2031 HIV Screening Completed 07/04/2024, 08/07/2019 Insurance [facility] Care Teams Supervisor Underwriting Clerks Relationship Specialty Start Date End Date Pcp, No PCP - General General Medicine 05/14/21
== END 2024-11-19 11:31 | disposition home or self-care (01) ==
LOC: HO.LNP 11:30
PROVIDERS: Visit Provider Student in an Organized Health Care Education/Training Program
DX: Z21 Asymptomatic human immunodeficiency virus [HIV] infection status (principal)
CPT/HCPCS: 88112

== ENCOUNTER 2025-02-22 09:07 | Outpatient (REF) | payer MEDICAID, OTHER, SELFPAY ==
--- OUTSIDE RECORDS SUMMARY | 2025-02-22 09:52 | XMS_ITS | Clinical Summary ---
Author Organization [facility] Address [address] [place] [address] Care Team Providers Care Metallurgical Analyst Name Role Phone Pcp, No Primary Care Provider Unavailabl e Allergies No known active allergies Medications levothyroxine (SYNTHROID, LEVOTHROID) 200 MCG tablet Take 200 mcg by mouth daily on an empty stomach. Active naloxone (NARCAN) 4 mg/0.1 mL Liquid nasal spray device [place] 4 mg (1 nasal spray) as a [...] 05/14/2031 HIV Screening Completed 07/04/2024, 08/07/[address] [facility] Care Teams Metallurgical Analyst Relationship Specialty Start Date End Date Pcp, No PCP - General General Medicine 05/14/21
[2025-02-22 11:41] LABS: Hematocrit 42.3 % (42.0-52.0); Hemoglobin 14.8 g/dl (14.0-18.0); Mean Corpuscular HGB Conc 35.0 g/dl (31.0-36.0); Mean Corpuscular Hemoglobin 31.2 pg (27.0-33.0); Mean Corpuscular Volume 89.1 fL (80.0-98.0); NRBC Abs Auto 0.000 X10*3/uL (0.0-0.012); NRBC Pct Auto 0.0 /100WBC (0.0-0.2); Platelet Count 258 X10*3/uL (160-400); Red Blood Count 4.75 X10*6/uL (4.60-5.80); White Blood Count 5.1 X10*3/uL (4.8-10.8)
[2025-02-22 13:06] LABS: Alanine Aminotransferase 25 U/L (0-40); Albumin Level 4.6 g/dL (3.5-5.0); Alkaline Phosphatase 120 U/L (39-117); Anion Gap 10 (12-20); Aspartate Amino Transferase 35 U/L (5-37); Blood Urea Nitrogen 16 mg/dL (9-16); Calcium 9.4 mg/dL (8.4-10.2); Carbon Dioxide 25 mmol/L (22-29); Chloride 110 mmol/L (96-108); Cholesterol 189 mg/dL (<200); Estimated Glomerular Filt Rate > 60; Free T4 (Free Thyroxine) 1.08 ng/dL (0.71-1.85); HDL Cholesterol 39 mg/dL (>40); Potassium 4.3 mmol/L (3.3-5.1); Sodium 141 mmol/L (135-145); Thyroid Stimulating Hormone 0.30 uIU/mL (0.32-4.0); Total Protein 7.7 g/dL (6.5-8.0); Triglycerides 98 mg/dL (<150)
[2025-02-22 13:46] LABS: CT PCR Urine NOT DETECTED (Not Detect.); NG PCR Urine NOT DETECTED (Not Detect.)
[2025-02-22 15:11] LABS: Folate 14.0 ng/mL (> or = 4.0); Vitamin B12 461 pg/mL (200-900)
[2025-02-23 09:18] LABS: Syphilis Screen Nonreactive (Nonreactive)
[2025-02-23 09:20] LABS: HBsAGNum1 0.36 S/CO (0.00-0.99); Hepatitis B Surface Antigen Negative (Negative); ~HepC Num1 0.09 S/CO (0.00-0.79); ~Hepatitis C Antibody Nonreactive (Nonreactive)
[2025-02-23 09:33] LABS: Rubeola IgG (Measles) <13.50 AU/mL
[2025-02-23 14:14] LABS: HIV RNA PCR Qn Copies NOT DETECTED copies/mL (NOT DETECTED); HIV RNA PCR Qn Log Copies NOT DETECTED (NOT DETECTED)
== END 2025-02-22 09:08 | disposition home or self-care (01) ==
LOC: HO.HHCL 09:07
PROVIDERS: PCP Student in an Organized Health Care Education/Training Program; Visit Provider Student in an Organized Health Care Education/Training Program
DX: Z21 Asymptomatic human immunodeficiency virus [HIV] infection status (principal); Z11.4 Encounter for screening for human immunodeficiency virus [HIV]; Z20.2 Contact with and (suspected) exposure to infections with a predominantly sexual mode of transmission; Z11.59 Encounter for screening for other viral diseases; Z01.84 Encounter for antibody response examination
CPT/HCPCS: 80053; 80061; 82607; 82746; 83036; 84439; 84443; 85027; 86735; 86762; 86765; 86780; 86803; 87340; 87491; 87536; 87591